=== PATIENT | female | born 1965 | race Caucasian/White ===

== ENCOUNTER 2016-04-10 05:06 | Emergency (ER) | payer OTHER ==
[~2016-04-10] VITALS: Ht 154.9 cm; Wt 114.6 kg
[2016-04-10] VITALS (8 sets, daily range): BP systolic 154–214; BP diastolic 3–112; PULSE 81–118; RESP 16–28; TEMP 98.7–102.3; O2SAT 91–96
[~2016-04-10 05:06] MED LIST: CLON1 PO; EPIP0.3I IM; FISHCAP; GLUCTAB PO; HYDR12.56 PO; LISI-360 PO; MEDR4PAK3 PO; NORV2.5T11 PO; ZOLO20CO PO
[2016-04-10] MEDS ORDERED: SODIUM CHLORIDE 0.9% FLUSH 5 ML FLUSH IVF PRN (05:30)
[2016-04-10] MEDS ORDERED: diphenhydrAMINE HCL 50 MG/ML VIAL IVP ONE (05:30)
[2016-04-10] MEDS ORDERED: ACETAMINOPHEN 500 MG CPLT PO ONE (05:30)
[2016-04-10] MEDS ORDERED: FAMOTIDINE 20 MG/2 ML VIAL IV PUSH ONE (05:30)
[2016-04-10] MEDS ORDERED: methylPREDNISolone SOD SUCC 125 MG/2 ML VIAL IVP ONE (05:30)
[2016-04-10] MEDS ORDERED: SODIUM CHLOR 0.9% 1000 ML INJ 1,000 ML IV SCH (05:30)
[2016-04-10 05:42] LABS: AUTOMATED NEUTROPHIL # 5.7 TH/MM3 (1.8-7.7); BASOPHIL % 0.6 % (0.0-2.0); EOSINOPHIL # 0.1 TH/MM3 (0-0.4); HEMATOCRIT 43.4 % (35.0-46.0); HEMO FLAGS DIFF FINAL; LYMPH % 9.2 % (9.0-44.0); LYMPHOCYTE # 0.7 TH/MM3 (1.0-4.8); MEAN CELL VOLUME 86.4 FL (80.0-100.0); MEAN CORPUSCULAR HEMOGLOBIN 29.2 PG (27.0-34.0); MEAN CORPUSCULAR HGB CONC 33.8 % (32.0-36.0); MONO % 11.4 % (0.0-8.0); NEUT % 77.8 % (16.0-70.0); PLATELET COUNT 234 TH/MM3 (150-450); RED BLOOD COUNT 5.02 MIL/MM3 (4.00-5.30); RED CELL DISTRIBUTION WIDTH 12.6 % (11.6-17.2); WHITE BLOOD COUNT 7.3 TH/MM3 (4.0-11.0)
[2016-04-10 05:49] LABS: POTASSIUM 3.8 MEQ/L (3.5-5.1)
[2016-04-10 05:53] LABS: BICARBONATE 24.8 MEQ/L (21.0-32.0)
--- NOTE | 2016-04-10 06:07 | PD ---
HPI Chief Complaint: Allergic/Adverse Reaction Time Seen by Provider: 05:25 Travel History International Travel<30 days: No Contact w/Intl Traveler<30days: No Traveled to known affect area: No History of Present Illness HPI 51-year-old female presents to the emergency department for allergic reaction. Patient has history of idiopathic urticaria and focal angioedema. Patient states symptoms began yesterday afternoon with cold-like symptoms and filling hives and her scalp. Patient took a dose of Klonopin and Zyrtec. Patient fell asleep. Patient awakened around 11:30 and noticed increased itching but also noted cough congestion and fever. Patient states she feel back to sleep and then awakened just prior to arrival to the emergency department with marked swelling of the upper and lower lid of the left eye as well as urticaria in the scalp ear and buttock region. Patient denies any lip tongue or throat swelling. Patient had large port wine stain over the left face. Patient is current on influenza vaccine. Denies any shortness of breath or wheezing. Has had no nausea or vomiting. No near-syncope or syncope. PFSH Past Medical History Narrative Medical Anxiety, dyslipidemia, port wine stain left face, idiopathic urticaria, glaucoma , hypertension, headaches, hysterectomy, occasional alcohol use no tobacco use Anxiety: Yes High Cholesterol: Yes Diminished Hearing: No GERD: Yes Glaucoma: Yes Headaches: Yes (WITH HIVES) Hypertension: Yes Tetanus Vaccination: > 5 Years Influenza Vaccination: Yes ?: Not Menopausal: Yes : 1 : 1 Past Surgical History Hysterectomy: Yes (PARTIAL AT AGE 36) Oral Surgery: Yes (WISDOM TEETH EXTRACTION: AGE 14) Other Surgery: Yes (PORT WINE STAIN ON LEFT SIDE OF FACE: LASER TREATMENTS) Social History Alcohol Use: Yes ("RARELY") Tobacco Use: No (QUIT 2005) Substance Use: No Allergies-Medications (Allergen,Severity, Reaction): Coded Allergies: Atropine (Verified Allergy, Severe, HIVES, SWELLING, 04/10/16) Codeine (Verified Allergy, Severe, HIVES, SWELLING, 04/10/16) HIVES Penicillin (Verified Allergy, Severe, UNKNOWN (), 04/10/16) HIVES Percocet (Verified Allergy, Severe, RASH, ITCH, SWELLING, 04/10/16) Ibuprofen (Verified Allergy, Intermediate, Hives, 04/10/16) Pineapple (Verified Allergy, Intermediate, denies, 04/10/16) Reported Meds & Prescriptions Reported Meds & Active Scripts Active Deltasone (Prednisone) 20 Mg Tab 20 Mg PO BID 5 Days Reported Zoloft (Sertraline HCl) 25 Mg Tab 25 Mg PO DAILY Norvasc (Amlodipine Besylate) 2.5 Mg Tab 2.5 Mg PO DAILY Hydrochlorothiazide 12.5 Mg Tab 12.5 Mg PO DAILY Metformin ER (Metformin HCl) 500 Mg Kourtney 500 Mg PO DAILY With evening meal Lisinopril 10 Mg Tab 10 Mg PO DAILY Fish Oil + D3 (Fish Oil-Cholecalciferol) 1,200-1,000 Mg-Unit Cap 1 Cap PO DAILY Epipen 2-Abbe Inj (Epinephrine) 0.3 Mg/0.3 Ml Pfpen 0.3 Mg IM ONCE PRN Klonopin (Clonazepam) 1 Mg Tab 1 Mg PO DAILY PRN Review of Systems Except as stated in HPI: all other systems reviewed are Neg General / Constitutional: Positive: Fever, Chills HENT: Positive: Congestion Cardiovascular: No: Chest Pain or Discomfort Respiratory: Positive: Cough, No: Shortness of Breath, Wheezing Gastrointestinal: No: Nausea, Vomiting, Diarrhea, Abdominal Pain Genitourinary: No: Flank Pain Musculoskeletal: No: Myalgias, Arthralgias Skin: Positive Rash, Positive Itching, Positive Hives Neurologic: No: Weakness Hematologic/Lymphatic: No: Lymph Node Enlargement Physical Exam Narrative GENERAL: Well-developed well-nourished female in no respiratory distress. No stridor or hoarseness. T:102.3 F HR: 118 BP: 188/102 RR: 24 O2 sat RA: 91% SKIN: Warm and dry with diffuse areas of patchy urticaria and angioedema localized to the left face in the periorbital distribution. No petechia no purpura no pustules no vesicles. HEAD: Normocephalic. EYES: No scleral icterus. No injection or drainage. NECK: Supple, trachea midline. No JVD or lymphadenopathy. CARDIOVASCULAR: Increased Regular rate and rhythm without murmurs, gallops, or rubs. RESPIRATORY: Breath sounds equal bilaterally. No accessory muscle use. GASTROINTESTINAL: Abdomen soft, non-tender, nondistended. MUSCULOSKELETAL: No cyanosis, or edema. BACK: Nontender without obvious deformity. No CVA tenderness. Data Data Last Documented VS Vital Signs Date Time Temp Pulse Resp B/P Pulse Ox O2 Delivery O2 Flow Rate FiO2 04/10/16 08:44 83 16 154/71 94 04/10/16 07:55 98.7 Nasal Cannula 2 Orders Basic Metabolic Panel (Bmp) (04/10/16 05:25) Complete Blood Count With Diff (04/10/16 05:25) Ecg Monitoring (04/10/16 05:25) Iv Access Insert/Monitor (04/10/16 05:25) Oximetry (04/10/16 05:25) Diphenhydramine Inj (Benadryl Inj) (04/10/16 05:30) Methylprednisolone So Succ Inj (Solumedr (04/10/16 05:30) Famotidine Inj (Pepcid Inj) (04/10/16 05:30) Sodium Chloride 0.9% Flush (Ns Flush) (04/10/16 05:30) Chest, Single Ap (04/10/16 ) Lactic Acid Sepsis Protocol (04/10/16 05:25) Blood Culture (04/10/16 05:25) Sodium Chlor 0.9% 1000 Ml Inj (Ns 1000 M (04/10/16 05:30) Acetaminophen (Tylenol) (04/10/16 05:30) Group A Rapid Strep Screen (04/10/16 05:25) Strep Culture (Group A) (04/10/16 05:39) Clonidine (Catapres) (04/10/16 06:15) Influenzae A/B Antigen (04/10/16 06:56) Diphenhydramine Inj (Benadryl Inj) (04/10/16 07:15) Labs Laboratory Tests Test 04/10/16 05:15 White Blood Count 7.3 TH/MM3 Red Blood Count 5.02 MIL/MM3 Hemoglobin 14.6 GM/DL Hematocrit 43.4 % Mean Corpuscular Volume 86.4 FL Mean Corpuscular Hemoglobin 29.2 PG Mean Corpuscular Hemoglobin 33.8 % Concent Red Cell Distribution Width 12.6 % Platelet Count 234 TH/MM3 Mean Platelet Volume 9.5 FL Neutrophils (%) (Auto) 77.8 % Lymphocytes (%) (Auto) 9.2 % Monocytes (%) (Auto) 11.4 % Eosinophils (%) (Auto) 1.0 % Basophils (%) (Auto) 0.6 % Neutrophils # (Auto) 5.7 TH/MM3 Lymphocytes # (Auto) 0.7 TH/MM3 Monocytes # (Auto) 0.8 TH/MM3 Eosinophils # (Auto) 0.1 TH/MM3 Basophils # (Auto) 0.0 TH/MM3 CBC Comment DIFF FINAL Differential Comment Sodium Level 139 MEQ/L Potassium Level 3.8 MEQ/L Chloride Level 105 MEQ/L Carbon Dioxide Level 24.8 MEQ/L Anion Gap 9 MEQ/L Blood Urea Nitrogen 13 MG/DL Creatinine 1.40 MG/DL Estimat Glomerular Filtration 40 ML/MIN Rate Random Glucose 194 MG/DL Lactic Acid Level 1.4 mmol/L Calcium Level 9.2 MG/DL [facility] Medical Decision Making Medical Screen Exam Complete: Yes Emergency Medical Condition: Yes Medical Record Reviewed: Yes Interpretation(s) cbc: Values grossly within normal range except for automated neutrophil percent of 77% Metabolic panel: Renal insufficiency creatinine 1.4, random glucose 197, anion gap and bicarbonate denies grossly normal range otherwise within normal limits Lactic acid 1.4 not elevated Differential Diagnosis Idiopathic urticaria, acute allergic reaction, angioedema, anaphylaxis, febrile illness, pneumonia, UTI, uncontrolled hypertension Narrative Course Patient placed on cardiac rehab nurse; IV access obtained; specimens collected and sent for resulting; patient administered Benadryl 25 mg IV and Pepcid 40 mg IV Solu-Medrol 125 mg IV Tylenol 1 g by mouth maintenance fluids of normal saline 100 cc per hour Evaporative cooling techniques used and additional dose of Benadryl 25 mg administered Patient's care signed over to oncoming physician Dr. Ibrahim at 7 AM Diagnosis Primary Impression: Urticaria Additional Impression: URI (upper respiratory infection) Scripts Prednisone (Deltasone)20 Mg Tab20 Mg PO BID 5 Days Ref 2 Prov:Miguel Ángel Ibrahim MD 04/10/16 Dede Garrett MD Apr 10, 2016 06:07
[2016-04-10] MEDS ORDERED: cloNIDine HCL 0.1 MG TAB PO ONE (06:15)
--- NOTE | 2016-04-10 06:15 | RADHPO ---
EXAM DATE/TIME: 04/10/2016 06:00 [place] COMPARISON: No previous studies available for comparison. INDICATIONS : Fever. MEDICAL HISTORY : Hypertension. Hypercholesterolemia. Gastroesophageal reflux disease. SURGICAL HISTORY : Hysterectomy. ENCOUNTER: Initial ACUITY: 1 day PAIN SCORE: 0/10 LOCATION: Bilateral chest FINDINGS: Portable AP view of the chest demonstrates a normal-sized cardiac silhouette. Lungs are underinflated and there is mild patchy opacity at the lung bases bilaterally. No pleural effusion or pneumothorax is identified. Bones and soft tissues demonstrate no acute finding. CONCLUSION: Underinflated examination with mild opacity at the lung bases that could represent either atelectasis or consolidation. Atelectasis is favored given the appearance and underinflation. If symptoms persis t consider followup good inspiratory formal PA and lateral views of the chest. Curt Pereira MD on April 10, 2016 at 6:13 Board Certified Radiologist. This report was verified electronically.
[2016-04-10] MEDS ORDERED: CLON1 PO (06:37)
[2016-04-10] MEDS ORDERED: ZOLO25TA PO (06:37)
[2016-04-10] MEDS ORDERED: HYDR12.56 PO (06:37)
[2016-04-10] MEDS ORDERED: LISI10TA3 PO (06:37)
[2016-04-10] MEDS ORDERED: NORV2.5T PO (06:37)
[2016-04-10] MEDS ORDERED: EPIP0.3I IM (06:37)
[2016-04-10] MEDS ORDERED: METF500T4 PO (06:37)
[2016-04-10] MEDS ORDERED: FISHCAP4 PO (06:37)
[2016-04-10] MEDS ORDERED: diphenhydrAMINE HCL 50 MG/ML VIAL IV PUSH ONE (07:15)
[2016-04-10] MEDS ORDERED: PRED-503 PO ×2 (08:27→08:36)
--- NOTE | 2016-04-10 08:27 | PD ---
Data Data Last Documented VS Vital Signs Date Time Temp Pulse Resp B/P Pulse Ox O2 Delivery O2 Flow Rate FiO2 04/10/16 07:55 98.7 81 16 161/83 95 Nasal Cannula 2 Orders Basic Metabolic Panel (Bmp) (04/10/16 05:25) Complete Blood Count With Diff (04/10/16 05:25) Ecg Monitoring (04/10/16 05:25) Iv Access Insert/Monitor (04/10/16 05:25) Oximetry (04/10/16 05:25) Diphenhydramine Inj (Benadryl Inj) (04/10/16 05:30) Methylprednisolone So Succ Inj (Solumedr (04/10/16 05:30) Famotidine Inj (Pepcid Inj) (04/10/16 05:30) Sodium Chloride 0.9% Flush (Ns Flush) (04/10/16 05:30) Chest, Single Ap (04/10/16 ) Lactic Acid Sepsis Protocol (04/10/16 05:25) Blood Culture (04/10/16 05:25) Sodium Chlor 0.9% 1000 Ml Inj (Ns 1000 M (04/10/16 05:30) Acetaminophen (Tylenol) (04/10/16 05:30) Group A Rapid Strep Screen (04/10/16 05:25) Urinalysis - C+S If Indicated (04/10/16 05:25) Strep Culture (Group A) (04/10/16 05:39) Clonidine (Catapres) (04/10/16 06:15) Influenzae A/B Antigen (04/10/16 06:56) Diphenhydramine Inj (Benadryl Inj) (04/10/16 07:15) Labs Laboratory Tests Test 04/10/16 05:15 White Blood Count 7.3 TH/MM3 Red Blood Count 5.02 MIL/MM3 Hemoglobin 14.6 GM/DL Hematocrit 43.4 % Mean Corpuscular Volume 86.4 FL Mean Corpuscular Hemoglobin 29.2 PG Mean Corpuscular Hemoglobin 33.8 % Concent Red Cell Distribution Width 12.6 % Platelet Count 234 TH/MM3 Mean Platelet Volume 9.5 FL Neutrophils (%) (Auto) 77.8 % Lymphocytes (%) (Auto) 9.2 % Monocytes (%) (Auto) 11.4 % Eosinophils (%) (Auto) 1.0 % Basophils (%) (Auto) 0.6 % Neutrophils # (Auto) 5.7 TH/MM3 Lymphocytes # (Auto) 0.7 TH/MM3 Monocytes # (Auto) 0.8 TH/MM3 Eosinophils # (Auto) 0.1 TH/MM3 Basophils # (Auto) 0.0 TH/MM3 CBC Comment DIFF FINAL Differential Comment Sodium Level 139 MEQ/L Potassium Level 3.8 MEQ/L Chloride Level 105 MEQ/L Carbon Dioxide Level 24.8 MEQ/L Anion Gap 9 MEQ/L Blood Urea Nitrogen 13 MG/DL Creatinine 1.40 MG/DL Estimat Glomerular Filtration 40 ML/MIN Rate Random Glucose 194 MG/DL Lactic Acid Level 1.4 mmol/L Calcium Level 9.2 MG/DL [facility] Supervised Visit with LEN: Yes Narrative Course Assumed care patient Dr. Garrett. 51-year-old woman with history of idiopathic urticaria, reportedly related to stress, as well as previous episodes of angioedema, presents to the emergency department with 2 days of worsening pruritic urticaria with left facial swelling and periorbital edema around her port wine stain. She's had similar symptoms in the past. She also has had URI symptoms of presents with a fever tachycardia and elevated blood pressure. She looks well. Fever and tachycardia and elevated blood pressure improved with Tylenol and clonidine. She feels much improved. Edema has reduced. She is on antihistamines already at home. We'll continue steroids, close outpatient follow-up, and she will agrees to return for any worsening symptoms. Workup for dangerous etiologies of her fever or infection of been unremarkable. Blood cultures are pending. Flu was negative. Patient has not given a urine since she's been here, denies any urinary symptoms at all. We'll allow her to be discharged without the UA, she will follow-up with her doctor. Diagnosis Primary Impression: Urticaria Additional Impression: URI (upper respiratory infection) Qualified Code: J06.9 - Viral upper respiratory tract infection Additional Instruction: Take prednisone as prescribed. Continue Zyrtec. Follow-up with your primary doctor in 1-2 days. Return to emergency department immediately for any trouble breathing, any worsening chest pain, any worsening facial swelling, or any other new or worsening symptoms. Med/Other Pt SpecificInfo: Prescription(s) given Scripts Prednisone (Deltasone)20 Mg Tab20 Mg PO BID 5 Days Prov:Miguel Ángel Ibrahim MD 04/10/16 Disposition: 01 DISCHARGE HOME Condition: Stable Miguel Ángel Ibrahim MD Apr 10, 2016 08:27
== END 2016-04-10 08:46 | disposition home or self-care (01) ==
LOC: PHED 05:06
DX: L50.9 Urticaria, unspecified (principal); J06.9 Acute upper respiratory infection, unspecified; E78.00 Pure hypercholesterolemia, unspecified; I10 Essential (primary) hypertension; K21.9 Gastro-esophageal reflux disease without esophagitis; Z87.891 Personal history of nicotine dependence
CPT/HCPCS: 71010; 80048; 83605; 85025; 87040; 87081; 87804; 87880; 96361; 96374; 96375; 96376; 99284; J1200; J2930; J7030